=== PATIENT | male | born 1995 | race Caucasian/White ===

== ENCOUNTER → 2022-11-25 | Outpatient (CLI) | payer OTHER ==
--- NOTE | 2022-11-25 12:52 | US ---
EXAMINATION TYPE: US scrotum with doppler. Grayscale and color Doppler Duplex imaging performed of t edison scrotum. DATE OF EXAM: 11/25/2022 COMPARISON: NONE CLINICAL HISTORY: K40.90 unil hernia N50.811 right testicular pain. inguinal hernia pain check blood flow. EXAM MEASUREMENTS: TESTICLES: Right Testicle: 4.0 x 2.3 x 2.7 cm Left Testicle: 3.9 x 2.5 x 2.9 cm EPIDIDYMIS HEAD: Right Epididymis: 0.9 x 1.1 x 1.3 cm Left Epididymis: 0.7 x 1.0 x 1.2 cm Doppler performed to assess for testicular vascularity; good bilateral color flow and waveforms are s een. There is no evidence of testicular torsion. No hernia visualized. Presence of hydroceles: no Presence of varicoceles: no IMPRESSION: Appropriate arterial and spectral venous waveforms to the testes. No evidence for testicular mass. No hernia visualized.
== END | disposition home or self-care (01) ==
LOC: RADUSWWP 12:08
PROVIDERS: ATTEND Emergency Medicine
DX: N50.811 Right testicular pain (principal); K40.90 Unilateral inguinal hernia, without obstruction or gangrene, not specified as recurrent
CPT/HCPCS: 76870; 93975